=== PATIENT | female | born 1960 | race Caucasian/White ===

== ENCOUNTER 2023-09-02 16:10 | Emergency (ER) | payer OTHER ==
[2023-09-02] VITALS (15 sets, daily range): BP systolic 146–195; BP diastolic 68–86
[~2023-09-02] VITALS: Ht 167.6 cm; Wt 81.1 kg
[2023-09-02] MEDS ORDERED: DiphenhydrAMINE HCL 50 MG/ML SDV IV ONE (16:20)
[2023-09-02] MEDS ORDERED: MAGNESIUM SULFATE HEPTAHYDRATE 50 ML IV ONE (16:20)
[2023-09-02] MEDS ORDERED: METOCLOPRAMIDE HCL 10 MG/2 ML SDV IV ONE (16:20)
[2023-09-02] MEDS ORDERED: LABETALOL HCL 100 MG/20 ML VIAL IV ONE (16:25)
[2023-09-02] MEDS ORDERED: DIOVAN80 MG PO (16:54)
[2023-09-02] MEDS ORDERED: VITAMIN D22000 UNIT PO (16:55)
[2023-09-02] MEDS ORDERED: MELOXICAM15 MG PO (16:55)
[2023-09-02] MEDS ORDERED: DESVENLAFAXINE100 M2 PO (16:56)
[2023-09-02 16:57] LABS: BASO% 0.5 % (0-3); EOS% 1.8 % (0-8); HEMATOCRIT 39.8 % (37.0-47.0); HEMOGLOBIN 12.7 g/dl (12.0-16.0); IMMATURE GRANULOCYTES 0.1 % (0.0-5.0); LYMPH% 53.2 % (15-41); MEAN CELL VOLUME 94.3 fL CALC (80.0-100.0); MEAN CORPUSCULAR HGB 30.1 pG CALC (26.0-32.0); MEAN CORPUSCULAR HGB CONC 31.9 g/dL CAL (32.0-36.0); MONO% 8.9 % (2-13); NEUT# 2.59 thou/uL (2.00-7.15); NEUT% 35.5 % (42-76); RED BLOOD COUNT 4.22 mill/uL (4.20-5.60); RED CELL DISTRI WIDTH 13.1 % (11.5-15.5)
[2023-09-02 16:58] LABS: GFR FOR AFR.AMER. > 60 ML/MIN (>=60 (CALC)); GFR OTHER RACES > 60 ML/MIN (>=60 (CALC))
[2023-09-02 17:02] LABS: URINE BILIRUBIN - DIPSTICK Negative (NEGATIVE); URINE BLOOD DIPSTICK Negative (NEGATIVE); URINE GLUCOSE - DIPSTICK Negative (NEGATIVE); URINE KETONE Negative (NEGATIVE); URINE LEUK ESTERASE Negative (NEGATIVE); URINE NITRITE - DIPSTICK Negative (Negative); URINE PH 6.5 (4.5-8.0); URINE PROTEIN - DIPSTICK Negative (NEG-TRACE); URINE UROBILINOGEN - DIPSTICK 0.2 E.U./dL (0.2)
[2023-09-02 17:07] LABS: URINE COLOR Yellow
[2023-09-02 17:14] LABS: ALBUMIN 4.3 g/dL (3.2-5.0); ALKALINE PHOSPHATASE 65 u/l (38-126); ANION GAP 12 (6-22 (CALC)); BILIRUBIN, TOTAL 0.3 mg/dL (0.02-1.3); BUN 13 mg/dL (8-23); BUN/CREATININE RATIO 20 (12-20 (CALC)); CARBON DIOXIDE 24 mmol/l (22-30); CHLORIDE 106 mmol/l (95-108); CREATININE 0.6 mg/dL (0.5-1.0); GFR FOR AFR.AMER. > 60 ML/MIN (>=60 (CALC)); GFR OTHER RACES > 60 ML/MIN (>=60 (CALC)); POTASSIUM 3.7 mmol/l (3.5-5.1); SGOT/AST 33 u/l (9-36); SODIUM 139 mmol/l (137-146); TOTAL PROTEIN 7.3 g/dL (6.3-8.2)
[2023-09-02 17:49] LABS: LIPASE 165 u/l (23-300)
[2023-09-02] MEDS ORDERED: ZOFRAN4 MG/TAB PO (18:44)
[2023-09-02] MEDS ORDERED: DEXAMETHASONE SODIUM PHOSPHATE 4 MG/VIAL SDV IV ONE (19:55)
== END 2023-09-02 20:02 | disposition home or self-care (01) | DRG 103 ==
LOC: ED 16:10
PROVIDERS: Family Medicine
DX: G43.909 Migraine, unspecified, not intractable, without status migrainosus (principal); J10.1 Influenza due to other identified influenza virus with other respiratory manifestations; I10 Essential (primary) hypertension; Z20.822 Contact with and (suspected) exposure to COVID-19
CPT/HCPCS: J3475; Q9967